=== PATIENT | male | born 1965 | race Caucasian/White ===

== ENCOUNTER → 2017-11-10 10:15 | Outpatient (CLI) | payer OTHER, SELFPAY ==
[2017-11-10 11:25] LABS: Add Manual Diff / Slide Review NO; Basophils Percent Auto 1.4 % (0-2); Eosinophils Percent Auto 1.9 % (2-4); Hematocrit 52.7 % (41-53); Hemoglobin 18.6 g/dL (13.5-17.5); Mean Corpuscular HGB Conc 35.4 % (30-36); Mean Corpuscular Hemoglobin 35.2 PG (26-34); Mean Corpuscular Volume 99.6 fL (80-100); Monocytes Percent Auto 10.4 % (3-14); Neutrophils Absolute Auto 4100 /uL (3000-5900); Neutrophils Percent Auto 62.3 % (50-75); Platelet Count 161 X10^3/uL (150-400); Red Blood Cell Count 5.29 X10^6/uL (4.5-5.9); Red Cell Distribution Width 13.9 % (11.6-14.8); White Blood Cell Count 6.6 X10^3/uL (4.5-11.0)
[2017-11-10 12:21] LABS: Alanine Aminotransferase 83 IU/L (21-72); Albumin 4.1 g/dL (3.5-5.0); Albumin Globulin Ratio 1.1 (1.0-2.8); Alkaline Phosphatase 69 U/L (38-126); Aspartate Aminotransferase 61 IU/L (17-59); BUN Creatinine Ratio 16.3 (6-22); Bilirubin Total 1.2 mg/dL (0.2-1.3); Blood Urea Nitrogen 13 mg/dL (9-20); Calcium 9.4 mg/dL (8.4-10.2); Carbon Dioxide 31 mmol/L (22-32); Chloride 96 mmol/L (98-107); Cholesterol 243 mg/dL (140-199); Estimated Glomerular Filt Rate > 60.0 mL/min (>60); Globulin 3.8 g/dL (1.7-4.1); Glucose 165 mg/dL (70-100); HDL Cholesterol 73 mg/dL (40-60); HEMOLYSIS 22 (0-50); LDL Cholesterol Calculated 137 mg/dL (<100); Potassium 5.1 mmol/L (3.4-5.1); Sodium 136 mmol/L (137-145); Total Protein 7.9 g/dL (6.3-8.2); Triglycerides 166 mg/dL (35-150)
== END ==
PROVIDERS: PCP Family Medicine; Visit Provider Family Medicine
DX: R73.9 Hyperglycemia, unspecified (principal); I10 Essential (primary) hypertension; E78.2 Mixed hyperlipidemia
CPT/HCPCS: 36415; 80053; 80061; 83036; 85025

== ENCOUNTER → 2018-02-20 10:32 | Outpatient (CLI) | payer OTHER, SELFPAY ==
--- NOTE | 2018-02-20 | DI.MRI.S_ITS ---
PROCEDURE: MR LUMBAR SPINE WO CON INDICATIONS: LEFT LEG WEAK AND NUMB TECHNIQUE: Noncontrast sagittal T1 spin echo and T2 fast echo, sagittal STIR, axial T1 spin echo through the lumbar spine. In cases with scoliosis, additional coronal T2 fast spin echo may be performed. COMPARISON: None. FINDINGS: Image quality: Excellent. Alignment and Curvature: There is normal bony alignment. Bone Marrow: Benign, intraosseous hemangiomas noted in the L1 and L5 vertebral bodies. No acute vertebral body compression fractures. Spinal Cord: Conus medullaris terminates at the L1 level. Visualized cord demonstrates normal signal and size. Paraspinous Soft Tissues: No paravertebral masses. L1-L2: Normal appearance. L2-L3: Loss of disc signal. Minimal, diffuse disc bulge. No central stenosis. No neural foraminal narrowing. No neural impingement. L3-L4: Loss of the signal. Mild diffuse disc bulge. No central stenosis. Mild bilateral neural foraminal narrowing. No neural impingement. L4-L5: Loss of the signal. Mild, diffuse disc bulge. Mild bilateral facet hypertrophy. Small far lateral left disc protrusion. Left far lateral disc protrusion impinges on the exiting left L4 nerve root. Mild narrowing of the central canal. Moderate to severe bilateral neural foraminal narrowing with slight flattened deformity exiting L4 nerve roots. L5-S1: Loss of the signal. Mild, diffuse disc bulge. Mild bilateral facet hypertrophy. No central stenosis. Moderate bilateral neural foraminal narrowing. No neural impingement. IMPRESSION: 1. Multilevel degenerative disc disease. 2. Multilevel facet arthropathy. 3. Mild L4-L5 central canal narrowing. 4. Moderate to severe bilateral L4-L5 neural foraminal narrowing. Moderate bilateral L5-S1 neural foraminal narrowing. Mild bilateral L3-L4 neural foraminal narrowing. 5. Left far lateral L4-L5 disc protrusion. Disc protrusion impinges on the exiting left L4 nerve root. Please correlate with clinical data. 6. Slight flattened deformity of the exiting L4 nerve roots secondary to bilateral L4-L5 neural foraminal narrowing. Please correlate with clinical Dictated by: Izzy Vázquez MD, PhD on 02/20/2018 at 14:57 Approved by: Izzy Vázquez MD, PhD on 02/20/2018 at 15:06
== END ==
PROVIDERS: Family Provider Family Medicine; PCP Family Medicine; Visit Provider Family Medicine
DX: M51.36 Other intervertebral disc degeneration, lumbar region (principal); M51.37 Other intervertebral disc degeneration, lumbosacral region; R20.0 Anesthesia of skin; M47.816 Spondylosis without myelopathy or radiculopathy, lumbar region; M47.817 Spondylosis without myelopathy or radiculopathy, lumbosacral region; M48.061 Spinal stenosis, lumbar region without neurogenic claudication; M48.07 Spinal stenosis, lumbosacral region
CPT/HCPCS: 72148

== ENCOUNTER → 2018-02-27 08:07 | Outpatient (CLI) | payer OTHER, SELFPAY ==
--- NOTE | 2018-02-27 | DI.US.S_ITS ---
PROCEDURE: US ABDOMEN COMPLETE INDICATIONS: ELEVATED LFTS TECHNIQUE: Real-time scanning was performed of the abdominal and retroperitoneal organs, with image documentation. COMPARISON: None. FINDINGS: Liver: Liver measures 18.5 cm in length and is mildly enlarged. Diffusely increased liver parenchymal echotexture is seen suggestive of hepatic steatosis. No discrete hepatic lesion is seen Gallbladder: No gallstone is noted. No gallbladder wall thickening or pericholecystic fluid. No sonographic Palacios's sign. Biliary ducts: Intrahepatic bile ducts are non-dilated. Extrahepatic bile duct caliber measures 5 mm. Normal is 6-7 mm or less in diameter, or 10 mm or less post-cholecystectomy. Pancreas: Visualized portions of the pancreas are sonographically normal. Spleen: Spleen is normal in size and homogeneous in echotexture. Kidneys: Kidneys are normal in size and echotexture. Right kidney measures 14.5 cm long; left kidney measures 15.5 cm long. 7 mm nonobstructing stone in lower pole of left kidney is seen. No hydronephrosis. No gross right-sided renal calculus. No solid masses. Aorta: Visualized aorta is normal in caliber at less than 3 cm. Iliacs: Proximal common iliac arteries are normal in caliber at less than 2.5 cm. IVC: Intrahepatic inferior vena cava is patent. Miscellaneous: No free abdominal fluid. IMPRESSION: 1. Enlarged liver with diffusely increased liver parenchymal echotexture suggestive of hepatic steatosis. Other than some hepatocellular disease cannot be excluded. No discrete hepatic lesion. No biliary ductal dilatation. 2. Rest of exam is unremarkable. Dictated by: Rodger Peters M.D. on 02/27/2018 at 10:10 Approved by: Rodger Peters M.D. on 02/27/2018 at 10:12
== END ==
PROVIDERS: PCP Family Medicine; Visit Provider Family Medicine
DX: R16.0 Hepatomegaly, not elsewhere classified (principal); R79.89 Other specified abnormal findings of blood chemistry
CPT/HCPCS: 76700

== ENCOUNTER → 2018-06-15 15:30 | Outpatient (CLI) | payer OTHER, SELFPAY ==
--- NOTE | 2018-06-15 | DI.RAD.S_ITS ---
PROCEDURE: XR KNEE LT 3V INDICATIONS: LEFT KNEE PAIN TECHNIQUE: 3 views of the knee were acquired. COMPARISON: [facility] [place], CR, XR KNEE ARTHRITIC SERIES LT, 03/12/2017, 15:27. [facility], MR, MR KNEE LEFT WITHOUT CONTRAST, 03/28/2017, 15:43. FINDINGS: Bones: No fractures or dislocations. No suspicious bony lesions. Moderate medial compartment degenerative osteoarthritis. Mild lateral facet patellofemoral joint osteoarthritis. Soft tissues: No joint effusion. No suspicious soft tissue calcifications. IMPRESSION: Mild to moderate knee joint osteoarthritis on the left as discussed, most prominent at the medial compartment. This has mildly worsened from March 2017. Dictated by: Mamadou Granado M.D. on 06/15/2018 at 16:04 Approved by: Mamadou Granado M.D. on 06/15/2018 at 16:05
== END ==
PROVIDERS: Family Provider Family Medicine; PCP Family Medicine; Visit Provider Family Medicine
DX: M25.562 Pain in left knee (principal); M17.12 Unilateral primary osteoarthritis, left knee
CPT/HCPCS: 73562

== ENCOUNTER → 2020-06-28 09:58 | Outpatient (CLI) | payer OTHER, SELFPAY ==
--- NOTE | 2020-06-28 | DI.RAD.S_ITS ---
PROCEDURE: XR CHEST 2V INDICATIONS: Palpitations TECHNIQUE: 2 views of the chest were acquired. COMPARISON: [facility], , CHEST 1 VIEW, 07/19/2016, 9:34. FINDINGS: Surgical changes and devices: None. Lungs and pleura: Lungs are clear. No pleural effusions or pneumothorax. Mediastinum: Mediastinal contours are normal. Heart size is normal. Bones and chest wall: No suspicious bony abnormalities. Soft tissues appear unremarkable. IMPRESSION: No acute cardiopulmonary pathology. Dictated by: Rodger Peters M.D. on 06/28/2020 at 10:43 Approved by: Rodger Peters M.D. on 06/28/2020 at 10:43
== END ==
PROVIDERS: PCP Student in an Organized Health Care Education/Training Program; Referring Provider Student in an Organized Health Care Education/Training Program; Visit Provider Student in an Organized Health Care Education/Training Program
DX: R00.2 Palpitations (principal)
CPT/HCPCS: 71046

== ENCOUNTER → 2023-12-09 15:34 | Outpatient (CLI) | payer OTHER, SELFPAY ==
--- NOTE | 2023-12-09 15:36 | DI.US.S_ITS ---
PROCEDURE: US ABDOMEN COMPLETE INDICATIONS: Generalized abdominal pain TECHNIQUE: Real-time scanning was performed of the abdominal and retroperitoneal organs, with image documentation. COMPARISON: [facility], , US ABDOMEN COMPLETE, 02/27/2018, 8:39. FINDINGS: Liver: Liver is markedly heterogeneous with surface nodularity consistent with cirrhotic change. No focal identifiable masses are seen. Flow in the main portal vein is hepatopetal. The main portal vein measures 1.7 cm. Gallbladder: Unremarkable Biliary ducts: Intrahepatic bile ducts are non-dilated. Extrahepatic bile duct caliber measures 5.2 mm. Normal is 6-7 mm or less in diameter, or 10 mm or less post-cholecystectomy. Pancreas: Visualized portions of the pancreas are sonographically normal. Spleen: Spleen is normal in size and homogeneous in echotexture. Kidneys: Kidneys are normal in size and echotexture. Right kidney measures 14.6 cm long; left kidney measures 15.4 cm long. No hydronephrosis or nephrolithiasis. No solid masses. Aorta: Visualized aorta is normal in caliber at less than 2 cm. Iliacs: Proximal common iliac arteries are normal in caliber at less than 1.3 cm. IVC: Intrahepatic inferior vena cava is patent. Miscellaneous: No free abdominal fluid. IMPRESSION: Markedly heterogeneous cirrhotic liver without a focal mass identified by ultrasound. Otherwise unremarkable abdominal ultrasound. Comment: Consider multiphase liver MRI to exclude infiltrative neoplasm in this patient with a markedly heterogeneous cirrhotic liver. Dictated by: León Shearer M.D. on 12/09/2023 at 20:51 Approved by: León Shearer M.D. on 12/09/2023 at 20:53
== END ==
PROVIDERS: PCP Family Medicine; Referring Provider Family Medicine; Visit Provider Family Medicine
DX: K74.60 Unspecified cirrhosis of liver (principal); R10.84 Generalized abdominal pain
CPT/HCPCS: 76700

== ENCOUNTER → 2025-05-06 09:16 | Outpatient (CLI) | payer OTHER, SELFPAY ==
--- NOTE | 2025-05-06 09:18 | DI.RAD.S_ITS ---
PROCEDURE: XR ANKLE LT MIN 3V INDICATIONS: Pain in left ankle and joints of left foot TECHNIQUE: 3 views of the ankle were acquired. COMPARISON: None. FINDINGS: Bones: No fractures or dislocations. Ankle mortise is normally aligned. No suspicious bony lesions. Mild tibiotalar joint space narrowing and osteophytes. Midfoot degenerative disease. Soft tissues: Vascular calcifications and soft tissue swelling. Possible small ankle joint effusion. IMPRESSION: No acute fracture. Soft tissue swelling and possible joint effusion. Dictated by: Aaliyah Carlson M.D. on 05/10/2025 at 11:57 Approved by: Aaliyah Carlson M.D. on 05/10/2025 at 11:58
--- NOTE | 2025-05-06 09:18 | DI.RAD.S_ITS ---
PROCEDURE: XR FOOT LT 2V INDICATIONS: Pain in left ankle and joints of left foot TECHNIQUE: 2 views of the foot were acquired. COMPARISON: None. FINDINGS: Bones: No fractures or dislocations. No suspicious bony lesions. Soft tissues: Possible small joint effusion. Vascular calcifications. Moderate soft tissue swelling. IMPRESSION: No acute fracture. Soft tissue swelling. Dictated by: Aaliyah Carlson M.D. on 05/10/2025 at 11:58 Approved by: Aaliyah Carlson M.D. on 05/10/2025 at 11:59
== END ==
LOC: RAD 09:17
PROVIDERS: PCP Family Medicine; Referring Provider Family Medicine; Visit Provider Family Medicine
DX: M25.572 Pain in left ankle and joints of left foot (principal); M79.89 Other specified soft tissue disorders
CPT/HCPCS: 73610; 73620